=== PATIENT | male | born 2000 | race Caucasian/White ===

== ENCOUNTER 2024-02-07 12:34 | Inpatient (IN) | payer MEDICAID, OTHER ==
[2024-02-07] MEDS ORDERED: MAG HYDROX/AL HYDROX/SIMETH 355 ML BOTTLE PO PRN (20:01)
[2024-02-07] MEDS ORDERED: HALOPERIDOL LACTATE 5 MG/ML 1 ML VIAL IM PRN (20:01)
[2024-02-07] MEDS ORDERED: haloperidoL 5 MG TAB PO PRN (20:01)
[2024-02-07] MEDS ORDERED: LORazepam 1 MG TAB PO PRN (20:01)
[2024-02-07] MEDS ORDERED: LORazepam 2 MG/ML INJ IM PRN (20:01)
[2024-02-07] MEDS: NICOTINE GUM (POLACRILEX) 2 MG GUM BUCCAL PRN (21:31)
[2024-02-08 06:52] VITALS: RESP 16
[2024-02-08] MEDS: NICOTINE 21MG/24HR PATCH TRANSDERM SCH (08:38)
[2024-02-08] MEDS: IBUPROFEN 600 MG TAB PO PRN (10:51)
[2024-02-08 12:36] LABS: Basophils % (A) 0 %; Eosinophils % (A) 0 %; HCT 47.7 % (39.0-53.0); HGB 15.3 gm/dL (13.0-17.5); Lymphocytes # (A) 1.3 k/uL (1.0-4.8); Lymphocytes % (A) 18 %; MCH 29.1 pg (25.0-35.0); MCHC 32.1 g/dL (31.0-37.0); MCV 90.6 fL (80.0-100.0); Mean Platelet Volume 7.4; Monocytes # (A) 0.5 k/uL (0-1.0); Monocytes % (A) 7 %; Neutrophils # (A) 5.5 k/uL (1.3-7.7); Neutrophils % (A) 74 %; Platelet Count 228 k/uL (150-450); RBC 5.27 m/uL (4.30-5.90); RDW 13.1 % (11.5-15.5); WBC 7.4 k/uL (3.8-10.6)
[2024-02-08 12:41] LABS: ALT 46 U/L (4-49); AST 39 U/L (17-59); African American GFR (CKD) >90 (>60 ml/min/1.73 sqM); Albumin 5.4 g/dL (3.5-5.0); Alkaline Phosphatase 49 U/L (38-126); Anion Gap 11 mmol/L; Bilirubin, Delta 0.1 mg/dL (0.0-0.2); Bilirubin,Unconjugated 0.7 mg/dL (0.0-1.1); Blood Urea Nitrogen 11 mg/dL (9-20); Calcium 10.2 mg/dL (8.4-10.2); Carbon Dioxide 29 mmol/L (22-30); Chloride 102 mmol/L (98-107); Glucose 95 mg/dL (74-99); Non-African American GFR(CKD) >90 (>60 ml/min/1.73 sqM); Potassium 4.7 mmol/L (3.5-5.1); Sodium 142 mmol/L (137-145); Total Bilirubin 0.8 mg/dL (0.2-1.3); Total Protein 8.6 g/dL (6.3-8.2)
--- NOTE | 2024-02-08 13:03 | P.HP ---
Psychiatric H&P - . H&P Date: 02/08/24 History & Physical: Allergies Allergy/AdvReac Type Severity Reaction Status Date / Time No Known Allergies Allergy Verified 02/07/24 20:10 Vital Signs Temp 98.4 F 02/08/24 06:52 Pulse 87 02/08/24 06:52 Resp 16 02/08/24 06:52 BP 111/72 02/08/24 06:52 Pulse Ox 98 02/08/24 06:52 FiO2 Intake & Output 02/07/24 02/08/24 02/08/24 18:59 06:59 18:59 Weight 63.6 kg 63.673 kg Laboratory Last Values WBC 7.4 k/uL (3.8-10.6) 02/08/24 11:04 RBC 5.27 m/uL (4.30-5.90) 02/08/24 11:04 Hgb 15.3 gm/dL (13.0-17.5) 02/08/24 11:04 Hct 47.7 % (39.0-53.0) 02/08/24 11:04 MCV 90.6 fL (80.0-100.0) 02/08/24 11:04 MCH 29.1 pg (25.0-35.0) 02/08/24 11:04 MCHC 32.1 g/dL (31.0-37.0) 02/08/24 11:04 RDW 13.1 % (11.5-15.5) 02/08/24 11:04 Plt Count 228 k/uL (150-450) 02/08/24 11:04 MPV 7.4 02/08/24 11:04 Neutrophils % 74 % 02/08/24 11:04 Lymphocytes % 18 % 02/08/24 11:04 Monocytes % 7 % 02/08/24 11:04 Eosinophils % 0 % 02/08/24 11:04 Basophils % 0 % 02/08/24 11:04 Neutrophils # 5.5 k/uL (1.3-7.7) 02/08/24 11:04 Lymphocytes # 1.3 k/uL (1.0-4.8) 02/08/24 11:04 Monocytes # 0.5 k/uL (0-1.0) 02/08/24 11:04 Eosinophils # 0.0 k/uL (0-0.7) 02/08/24 11:04 Basophils # 0.0 k/uL (0-0.2) 02/08/24 11:04 Sodium 142 mmol/L (137-145) 02/08/24 11:04 Potassium 4.7 mmol/L (3.5-5.1) 02/08/24 11:04 Chloride 102 mmol/L (98-107) 02/08/24 11:04 Carbon Dioxide 29 mmol/L (22-30) 02/08/24 11:04 Anion Gap 11 mmol/L 02/08/24 11:04 BUN 11 mg/dL (9-20) 02/08/24 11:04 Creatinine 0.74 mg/dL (0.66-1.25) 02/08/24 11:04 Est GFR (CKD-EPI)AfAm >90 (>60 ml/min/1.73 sqM) 02/08/24 11:04 Est GFR (CKD-EPI)NonAf >90 (>60 ml/min/1.73 sqM) 02/08/24 11:04 Glucose 95 mg/dL (74-99) 02/08/24 11:04 Calcium 10.2 mg/dL (8.4-10.2) 02/08/24 11:04 Total Bilirubin 0.8 mg/dL (0.2-1.3) 02/08/24 11:04 Conjugated Bilirubin 0.0 mg/dL (0.0-0.3) 02/08/24 11:04 Unconjugated Bilirubin 0.7 mg/dL (0.0-1.1) 02/08/24 11:04 Delta Bilirubin 0.1 mg/dL (0.0-0.2) 02/08/24 11:04 AST 39 U/L (17-59) 02/08/24 11:04 ALT 46 U/L (4-49) 02/08/24 11:04 Alkaline Phosphatase 49 U/L (38-126) 02/08/24 11:04 Total Protein 8.6 g/dL (6.3-8.2) H 02/08/24 11:04 Albumin 5.4 g/dL (3.5-5.0) H 02/08/24 11:04 02/08/24 12:52 IDENTIFYING DATA: Patient is a 23-year-old single male, unemployed and living at home with his parents CHIEF COMPLAINT: Suicide attempt via smashing face in the wall HPI: Patient presented to the hospital with suicide attempt. EPS note states, "Patient presented to ER at [facility] after suicide attempt via banging his face into the wall. Patient was medically cleared and CT shows fracture to nasal bone and lacerations requring sutures (5-6") per report. Patient admitted to hitting his head as a suicide attempt. Patient petition completed by CANTEEN OPERATOR stating patient purposefully hit his face into wall. Petition also states that patient has suicide plan to slit his throat. Patient clinical certification completed on 02/06/2024 with diagnosis depression and S/I with facts in support: Patient hit his head into wall several times trying to kill himself, and broke multiple bones in his face." Patient seen and evaluated on the unit and was agreeable with speaking to display card writer in office. He states he has been dealing with isolation, stating he has limited support as he does not want to burden his parents with his problems. He states looking around him and seeing people he know that are his age getting , working jobs and having kids and he feels like he is stuck. He states he did not complete high school, has no job or car and still lives at home with his parents. He states impulsively he smashed his face in a wall several times in order to kill himself however he is happy he did not complete suicide. He states he has had sleep difficulties, low energy, concentration issues, hopelessness but denied any anhedonia as he states he has been actively trying to gain his life back. He reports chronic appetite issues related to constipation and reports significant weight loss.. He talked about a history of severe bullying during his childhood and this causes him to fear men. Patient denies any suicidal or homicidal ideations intent or plan. At this time patient denies any auditory or visual hallucinations. Patient denies any flight of ideas racing thoughts and increased in goal directed behavior. Patient admits to using cigarettes only. PAST PSYCHIATRIC HISTORY: Patient has a history of autism spectrum disorder, depression. Patient denies being on any psychiatric medications. He states he has tried several psychotropic medications including Thioridazine, imipramine, amitriptyline, Xanax, Zoloft, Abilify, Depakote, phenobarbital. Reports issues with nausea with several antidepressant medications and weight gain on Abilify. Patient denies any previous psychiatric hospitalizations. Patient denies any psychiatric outpatient follow-up. He reports 1 previous suicide attempt in 2011 via belt strangulation was not hospitalized PMH: as per ER note ALLERGIES: as per EMR SUBSTANCE USE HISTORY: He reports smoking 6 cigarettes/day but denied any alcohol or illicit drug use FAMILY PSYCHIATRIC/SUBSTANCE USE HISTORY: He reports his grandma suffer from bipolar disorder and that dad's sides of the family abused alcohol however his father does not SOCIAL HISTORY: Patient was born and raised in [facility] however his family moved to [place] for some time before moving back. He completed schooling up to 10th grade, stating he had IEP plans. He is single, unemployed and has no children. He lives at home with his parents. MENTAL STATUS EXAM: General Appearance: Patient appears to be stated age is alert, directable, and attempts to cooperate. Patient appears to have fair hygiene and grooming. Behavior: Patient is seated without any agitated behavior. Speech: Patient's speech is fluent and nonpressured. Mood/Affect: Patient reports their mood is depressed, affect is congruent and constricted. Suicidality/Homicidality: Patient denies having any homicidal ideation intent or plan. Denies any suicidal ideations intent or plan Perceptions: Patient denies any visual hallucinations and denies any auditory hallucinations Though content/process: There is no evidence of any delusional thought content and thought process is linear and logical. Memory and concentration: AOX3, grossly intact for the purposes of this session. Can spell "WORLD" backwards Judgment and insight: Poor STRENGTHS/WEAKNESSES: strength is that patient is resilient, have family support. Weakness is that patient has poor judgment and is impulsive INTELLECT: Average-below average IMPRESSIONS: Suicide attempt Major depressive disorder, recurrent, severe without psychotic features Generalized anxiety disorder Nicotine dependence Autism spectrum disorder PLAN: -Patient is admitted under voluntary status to MHU for stabilization of psychiatric symptoms and safety. Patient has signed adult voluntary form and medication consent and is placed in patient's chart. -Medications : Start Remeron 7.5 mg at bedtime for depression/anxiety -Ativan and Haldol PRN for agitation/aggression -Patient was informed of the risks, benefits and side effects of the medication and patient verbally consented to taking the medications. Patient signed med consent form and was placed in chart. -Internal Medicine consult to perform medical evaluation and physical. -NRT -nicotine patch -SW on board for discharge planning. Encourage patient to participate in groups to work on coping skills. Anticipate discharge home with family early/mid next week
[2024-02-08] MEDS: MAGNESIUM HYDROXIDE 2,400 MG/30 ML CUP PO PRN (15:55)
[2024-02-08] MEDS: polyethylene glycoL 3350 17 GM POWD.PACK PO SCH (17:22)
--- NOTE | 2024-02-08 18:25 | P.HPIM ---
History of Present Illness H&P Date: 02/08/24 23 year old M with PMH of GERD, Constipation presents to [facility] for mental health concerns. He has been admitted to the mental health unit for further management of symptoms. [facility] consulted for medical management of this patient. Reports a history of GERD on Omeprazole. Reports a history of constipation on Miralax. Smokes 6 cigs daily. No EtOH or illicits. BP 132/70, HR 99, T 98.6, RR 18, 99% on RA. CBC unremarkable. CMP alb 5.4, total protein 8.6. TSH 2.67. A1c 5.1. General: non toxic, no distress, appears at stated age Derm: warm, dry Head: atraumatic, normocephalic, symmetric Eyes: EOMI, no lid lag, anicteric sclera Mouth: no lip lesion, mucus membranes moist Cardiovascular: S1S2 reg, no murmur Lungs: CTA bilateral, no rhonchi, no rales , no accessory muscle use Ext: no gross muscle atrophy, no edema, no contractures Neuro: no focal neuro deficits Psych: Alert, oriented, appropriate affect Based on my assessment of this patient, this patient meets a high complexity level of care. GERD: Protonix 40 mg PO QD. Constipation: Miralax 17g PO QD. Nicotine dependence: Nicotine patch 21 mg/24H. I have reviewed the following sourcing consultant notes: Psyc note. I have reviewed the results of the following tests: CBC, CMP, A1c, TSH. I have ordered the following tests: I have discussed the care of this patient with the following independent historian: I have independently interpreted the following test below: I have discussed the management of this patient with the following physician: Past Medical History Past Medical History: GERD/Reflux History of Any Multi-Drug Resistant Organisms: None Reported Past Surgical History: No Surgical Hx Reported Past Anesthesia/Blood Transfusion Reactions: No Reported Reaction Past Psychological History: Depression Smoking Status: Current every day smoker Past Alcohol Use History: None Reported Past Drug Use History: None Reported - Past Family History Father Family Medical History: No Reported History Mother Family Medical History: No Reported History Medications and Allergies Home Medications Medication Instructions Recorded Confirmed Type No Known Home Medications 02/07/24 02/07/24 History Allergies Allergy/AdvReac Type Severity Reaction Status Date / Time No Known Allergies Allergy Verified 02/07/24 20:10 Physical Exam Vitals: Vital Signs Temp Pulse Resp BP Pulse Ox 02/08/24 06:52 98.4 F 87 16 111/72 98 02/07/24 20:31 98.6 F 99 18 132/70 99 Results CBC & Chem 7: 02/08/24 11:04 02/08/24 11:04 Labs: Abnormal Lab Results - Last 24 Hours (Table) 02/08/24 Range/Units 11:04 Total Protein 8.6 H (6.3-8.2) g/dL Albumin 5.4 H (3.5-5.0) g/dL Thrombosis Risk Factor Assmnt - Choose All That Apply Any of the Below Risk Factors Present?: No Other Risk Factors: No Thrombosis Risk Factor Assessment Level: Very Low Risk
[2024-02-08 18:59] LABS: Appearance,Urine Clear (Clear); Bilirubin,Urine Negative (Negative); Blood,Urine Negative (Negative); Color,Urine Yellow; Glucose,Urine (UA) Negative (Negative); Ketones,Urine Negative (Negative); Leukocyte Esterase,Urine Negative (Negative); Mucus,Urine Few /hpf; Nitrite,Urine Negative (Negative); Protein,Urine 1+ (Negative); RBC,Urine <1 /hpf (0-5); Squamous Epithelial Cell,Urine <1 /hpf (0-4); Urobilinogen,Urine <2.0 mg/dL (<2.0); WBC,Urine 2 /hpf (0-5)
[2024-02-08] MEDS: MIRTAZAPINE 15 MG TAB PO SCH (20:11)
[2024-02-08 20:43] LABS: LDL Cholesterol,Calculated 71.1 mg/dL (0.0-131.0)
[2024-02-09 06:47] VITALS: TEMP 97.8
[2024-02-09] MEDS: PANTOPRAZOLE 40 MG TABLET PO SCH (08:43)
--- NOTE | 2024-02-09 13:32 | P.PN ---
Progress Note - Text Progress Note Date: 02/09/24 Interval history: Patient was seen after visitation and was directable and agreeable to speak with check writer. He reports feeling "pretty good." He denies experiencing suicidal ideation and feels "blunt happiness" which is an improvement in his mood as compared to admission. He recognized that he doesn't necessarily appear happy but notes he does feel this inside. We explored the factors that contributed to his suicide attempt, and he identifed feeling lonely. He doesn't want to burden his parents by seeking time/connection with them given the effor they put into providing for the family (Dad) and maintaining the home (Mom). He has goals he'd like to accomplish and was future-oriented; specifically, he wants to start driving, complete his GED, get a job, and get an apartment. He feels he knows the next steps to take in accomplishing these goals but identified loneliness as a barrier. He's sleeping well. He's experiencing some constipation; we discussed adding something else to his regimen to provide relief. At this time patient denies any suicidal or homicidal ideations intent or plan. Denies any auditory or visual hallucinations. Patient denies any side effects from the medications and has been compliant with meds. Mental status exam: General Appearance: Patient appears to be stated age is alert, directable, and cooperative. Stitches and bruising on bridge of nose with some right-sided facial swelling. Behavior: No agitated behavior. Patient is calm and directable Speech: Patient's speech is fluent and non-pressured. Mood/Affect: Mood is "blunted happiness", affect is congruent and constricted. Suicidality/Homicidality: Patient denies having any suicidal or homicidal ideation intent or plan. Perceptions: Patient denies any auditory or visual hallucinations. Though content/process: There is no evidence of any delusional thought content and thought process is linear and goal-directed. Memory and concentration: AOX3, grossly intact for the purposes of this session Judgment and insight: improving mildly Assessment/Plan: Continue with current diagnoses: Suicide attempt, Major depressive disorder- severe without psychotic features, generalized anxiety disorder, autism spectrum disorder, nicotine dependence Patient continues to meet criteria for inpatient psychiatric admission for symptom stabilization and safety. Patient will be maintained on current psychotropic medication regimen: Remeron 7.5 mg at bedtime Monitor for medication compliance and for any psychotropic medication side effects. Will continue to monitor ongoing response to treatment. Encouraged participation in milieu.
[2024-02-09] MEDS: SENNOSIDES 8.6 MG TAB PO SCH (15:48)
[2024-02-09] MEDS: diphenhydrAMINE 25 MG CAP PO STA (22:38)
--- NOTE | 2024-02-10 10:58 | P.PN ---
Progress Note - Text Interval history: Patient was directable and agreeable to speak with real estate underwriter in the office. He reports "doing pretty good" today. He notices improvement in his mood compared to admission. He experienced significant loneliness and feeling he wasn't living up to his potential due to not having completed his education or having a job/friends. This contributed to the suicidal ideation that led to his attempt. He is feeling more hopeful about being able to take the steps to move towards building his social life and pursuing employment. He has been talking to his parents; the conversations are going well from his perspective. He had a difficult time sleeping last night; he forgot to remove his nicotine patch and had disturbing dreams. He reports stable appetite. Ongoing issues with chronic constipation, currently exacerbated because any forceful attempts at having a bowel movement increase the pressure in his nose which results in increased pain near his stitches. We discussed a plan to increase his bowel regimen to promote soft stools and avoid straining. At this time patient denies any suicidal or homicidal ideations intent or plan. Denies any auditory or visual hallucinations. Patient denies any side effects from the medications and has been compliant with meds. Mental status exam: General Appearance: Patient appears to be stated age is alert and cooperative. Stitches and bruising on bridge of nose with mild improvement in right-sided facial swelling. Behavior: No agitated behavior. Patient is calm and directable. Speech: Patient's speech is fluent and non-pressured. Mood/Affect: Mood is "pretty good", affect is congruent and constricted. Suicidality/Homicidality: Patient denies having any suicidal or homicidal ideation intent or plan. Perceptions: Patient denies any auditory or visual hallucinations. Though content/process: There is no evidence of any delusional thought content and thought process is linear and goal-directed. Memory and concentration: AOX3, grossly intact for the purposes of this session Judgment and insight: continues to improve Assessment/Plan: Continue with current diagnoses: Suicide attempt, Major depressive disorder- severe without psychotic features, generalized anxiety disorder, autism spectrum disorder, nicotine dependence Patient continues to meet criteria for inpatient psychiatric admission for symptom stabilization and safety. Patient will be maintained on current psychotropic medication regimen: Remeron 7.5 mg at bedtime; will increase to 15 mg tonight For chronic constipation presently exacerbated will increase Miralax to 17 GM BID (patient was on this in the past and found BID dosing helpful); also added Docusate 100 mg BID (today) and Senna once daily (yesterday) Monitor for medication compliance and for any psychotropic medication side effects. Will continue to monitor ongoing response to treatment. Encouraged participation in milieu.
[2024-02-10] MEDS: polyethylene glycoL 3350 17 GM POWD.PACK PO SCH (15:33)
[2024-02-10] MEDS: MIRTAZAPINE 15 MG TAB PO SCH (20:10)
[2024-02-10] MEDS: DOCUSATE 100 MG CAP PO SCH (20:11)
[2024-02-11] MEDS: ACETAMINOPHEN TAB 325 MG TAB PO PRN (08:29)
--- NOTE | 2024-02-11 12:18 | P.PN ---
Progress Note - Text Progress Note Date: 02/11/24 Interval History: Patient was seen wandering the hallways and was directable and agreeable to karlos villar with remote mortgage underwriter in the office. He reports feeling well today. He reports improvement in terms of his mood and states his nose is doing better and is less painful. He reports difficulties with sleep at night due to the environment and one of his peers walking throughout the night. He has spoken to several family members since he has been here and things are well at home. He states his father will be able to pick him up once discharged. He finally had a bowel movement yesterday and reports having 1 today as well. He reports no anxiety. At this time patient denies any suicidal or homicidal ideations, intent or plan. Patient denies any auditory, visual hallucinations and denies any paranoia or delusions. Patient denies any side effects from the medications and has been compliant with meds. Mental Status Exam: General Appearance: Patient appears to be stated age is alert, directable, and cooperative. Behavior: Patient is calmly seated without any agitated behavior. Speech: Patient's speech is fluent and nonpressured. Mood/Affect: Mood is improving mildly, affect is congruent and blunted. Suicidality/Homicidality: Patient denies having any suicidal or homicidal ideation intent or plan. Perceptions: Patient denies any visual hallucinations and denies any auditory hallucinations Though content/process: There is no evidence of any delusional thought content and thought process is linear and goal-directed. Memory and concentration: AOX3, grossly intact for the purposes of this session Judgment and insight: Improving mildly Assessment Suicide attempt Major depressive disorder, recurrent, severe without psychotic features Generalized anxiety disorder Nicotine dependence Autism spectrum disorder Plan: -Patient continues to meet criteria for inpatient psychiatric admission for symptom stabilization and safety. Patient has signed adult voluntary form and medication consent and was placed in patient's chart. -Medications: Continue Remeron 15 mg at bedtime for depression/anxiety -When necessary Ativan and Haldol for agitation/aggression. -Labs: Reviewed -NRT -nicotine patch -SW on board for discharge planning. Encouraged the patient to participate in milieu. Anticipate discharge home with family tomorrow, will confirm with father there are no firearms in the home.
[2024-02-12 06:53] VITALS: BP 105/77; PULSE 88
--- NOTE | 2024-02-12 10:52 | P.DS ---
Providers Date of admission: 02/07/24 19:58 Expected date of discharge: 02/12/24 Attending physician: Shayla Gtz MD Consults: 02/07/24 20:01 Consult Physician Routine Consulting Provider: Irma Rodrigues Consult Reason/Comments: History and Physical Do you want consulting provider notified?: Yes Primary care physician: Stated None - Discharge Diagnosis(es) (1) Suicide attempt Current Visit: Yes Status: Acute Priority: High (2) Major depressive disorder, recurrent episode, severe Current Visit: Yes Status: Acute Priority: High (3) Generalized anxiety disorder Current Visit: Yes Status: Acute Priority: Medium (4) Nicotine dependence Current Visit: Yes Status: Acute Priority: Low (5) Autism spectrum disorder Current Visit: Yes Status: Chronic Priority: Low Hospital Course: Admission HPI: Admission note was completed by residential mortgage underwriter "Patient presented to the hospital with suicide attempt. EPS note states, "Patient presented to ER at [facility] after suicide attempt via banging his face into the wall. Patient was medically cleared and CT shows fracture to nasal bone and lacerations requring sutures (5-6") per report. Patient admitted to hitting his head as a suicide attempt. Patient petition completed by RESEARCH SCHOLAR stating patient purposefully hit his face into wall. Petition also states that patient has suicide plan to slit his throat. Patient clinical certification completed on 02/06/2024 with diagnosis depression and S/I with facts in support: Patient hit his head into wall several times trying to kill himself, and broke multiple bones in his face." Patient seen and evaluated on the unit and was agreeable with speaking to residential mortgage underwriter in office. He states he has been dealing with isolation, stating he has limited support as he does not want to burden his parents with his problems. He states looking around him and seeing people he know that are his age getting , working jobs and having kids and he feels like he is stuck. He states he did not complete high school, has no job or car and still lives at home with his parents. He states impulsively he smashed his face in a wall several times in order to kill himself however he is happy he did not complete suicide. He states he has had sleep difficulties, low energy, concentration issues, hopelessness but denied any anhedonia as he states he has been actively trying to gain his life back. He reports chronic appetite issues related to constipation and reports significant weight loss.. He talked about a history of severe bullying during his childhood and this causes him to fear men. Patient denies any suicidal or homicidal ideations intent or plan. At this time patient denies any auditory or visual hallucinations. Patient denies any flight of ideas racing thoughts and increased in goal directed behavior. Patient admits to using cigarettes only." Hospital course: Upon admission to the unit patient was directable and agreeable to commence treatment and signed adult voluntary form.. Patient got along well with other patients on the unit and followed unit protocol. Patient was compliant with the medications and denied any side effects throughout hospital course. Patient was started on Remeron this was increased to 15 mg at bedtime for depression/anxiety. Patient notably had difficulties with both sleep and appetite and both improved throughout his stay. Patient spoke of his stressors and engaged in therapy both group and individual. Patient was also seen by medical team for history and physical exam. He was started on several stool softeners given his constipation including Colace, senna and MiraLAX. Throughout the course of the hospitalization patient gradually improved with regards to mood, anxiety, sleep and became more future oriented with improved insight and judgment. On the day of discharge patient denied any suicidal or homicidal ideations intent or plan denied any auditory or visual hallucinations. The patient denied any access to guns or weapons. Patient denied any paranoia and did not endorse any delusions. Patient does not have a significant history of substance abuse and was counseled on abstaining from all substances including alcohol and marijuana. Patient was also counseled on the medications and need for regular compliance and was encouraged to follow-up with their outpatient appointment for mental health and also for primary care. Prior to discharge a family meeting will be arranged by social group worker to answer any questions and ensure safety upon discharge incuding making sure that guns/weapons are either removed from the home or locked away. Patient to be discharged home with parents with [facility] follow-up in [facility]. Mental status exam: General Appearance: Patient appears to be stated age is alert, pleasant, and cooperative. Patient is in no acute distress and has good hygiene and grooming Behavior: Patient is calmly seated without any agitated behavior. Speech: Patient's speech is fluent and nonpressured. Mood/Affect: Patient reports their mood is "better", affect is congruent and euthymic. Suicidality/Homicidality: Patient denies having any suicidal or homicidal ideation intent or plan. Perceptions: Patient denies any auditory or visual hallucinations. Though content/process: There is no evidence of any delusional thought content and thought process is linear and goal-directed. More future oriented Memory and concentration: AOX3, grossly intact for the purposes of this session. Can spell "WORLD" backwards correctly. Judgment and insight: improved with guarded prognosis Impression: Suicide attempt Major depressive disorder, recurrent, severe without psychotic features Generalized anxiety disorder Nicotine dependence Autism spectrum disorder Plan: -Continue with discharge today as patient has improved and stabilized psychiatrically and is not currently an imminent threat to themself and/or others. -Continue medications: Remeron 15 mg at bedtime -Patient was counseled on the need for medication compliance and appropriate follow-up at mental health and also primary care for medical issues. Patient verbalized understanding and agreed. -Social work to help coordinate patients discharge today arrange for and conduct family meeting to ensure safety upon discharge and answer any questions/concerns. also to ensure safe home environment that guns/weapons are either removed from the home or locked away. Social work also to arrange for patients follow up appointments with [facility] for psychiatric care along with follow up with primary care provider. -Patient counseled on abstaining from recreational drugs and marijuana and alcohol. Was informed/educated on the adverse effects on their physical and mental health. Patient verbally agreed and understood. -Patient was instructed to return to the hospital or seek immediate medical care if their psychiatric or medical symptoms do worsen or reoccur. Allergies Allergy/AdvReac Type Severity Reaction Status Date / Time No Known Allergies Allergy Verified 02/07/24 20:10 Abnormal Labs 02/08/24 02/08/24 08:54 11:04 Total Protein 8.6 H Albumin 5.4 H HDL Cholesterol 82.20 H Urine Protein 1+ H Urine Mucus Few H Vital Signs Temp 97.8 F 02/09/24 06:46 Pulse 88 02/12/24 06:52 Resp 16 02/08/24 06:52 BP 105/77 02/12/24 06:52 Pulse Ox 100 02/09/24 06:46 FiO2 Patient Condition at Discharge: Stable Plan - Discharge Summary Discharge Rx Participant: Yes New Discharge Prescriptions: New Nicotine 21Mg/24Hr Patch [Habitrol] 1 patch TRANSDERM DAILY 30 Days #30 patch polyethylene glycoL 3350 [Miralax] 17 gm PO BID@0900,1600 packet Docusate [Colace] 100 mg PO BID 30 Days #60 cap Pantoprazole [Protonix] 40 mg PO AC-BRKFST 30 Days #30 tab Mirtazapine [Remeron] 15 mg PO HS 30 Days #30 tab Sennosides [Senokot] 8.6 mg PO DAILY 30 Days #30 tab Discharge Medication List Docusate [Colace] 100 mg PO BID 30 Days #60 cap 02/12/24 [Rx] Mirtazapine [Remeron] 15 mg PO HS 30 Days #30 tab 02/12/24 [Rx] Nicotine 21Mg/24Hr Patch [Habitrol] 1 patch TRANSDERM DAILY 30 Days #30 patch 02/12/24 [Rx] Pantoprazole [Protonix] 40 mg PO AC-BRKFST 30 Days #30 tab 02/12/24 [Rx] Sennosides [Senokot] 8.6 mg PO DAILY 30 Days #30 tab 02/12/24 [Rx] polyethylene glycoL 3350 [Miralax] 17 gm PO BID@0900,1600 packet 02/12/24 [Rx] Follow up Appointment(s)/Referral(s): Shaka Wen [facility] [Other] - 02/13/24 10:15 am [facility] [Other] - 1 Week Patient Instructions/Handouts: How to Stop Smoking (DC), Depression (DC), Generalized Anxiety Disorder (ED) Activity/Diet/Wound Care/Special Instructions: [facility] Discharge Info Avoid the use of street drugs and alcohol. Take all medications as prescribed. When you are in need of refills on your medications, please contact your outpatient medical provider and/or outpatient psychiatrist. Please go to your scheduled outpatient appointments for aftercare treatment. If symptoms return or become worse, call the crisis line at or and/or visit the nearest emergency room for assistance. National Suicide and Crisis Lifeline - call or text 988 Discharge Disposition: HOME SELF-CARE
--- NOTE | 2024-03-06 17:14 | CDI ---
Documentation Clarification Form Date: 03/06/2024 05:01:42 PM From: Zoraida Cheek Phone: Admit Date: 02/07/2024 07:58:00 PM Patient Name: Anthony Whitney Visit Number: [id number] Discharge Date: 02/12/2024 11:23:00 AM ATTENTION: The Clinical Documentation Specialists (CDI) and [facility] Coding Staff appreciate your assistance in clarifying documentation. Please respond to the clarification below the line at the bottom and electronically sign. The CDI & [facility] Coding staff will review the response and follow-up if needed. Please note: Queries are made part of the Legal Health Record. If you have any questions, please contact the author of this message via ITS. Doctor/Provider: Shayla Gtz Patient has a documented BMI of 19.9. Additional clarification is requested. History/Risk Factors: SA via cutting, MDD recurrent, severe without psychotic features, KATELYNN, Autism spectrum disorder, smoker Clinical Indicators: Weight 63.6 kg Height: 6 Calculated BMI is: 19.9 He reports chronic appetite issues related to constipation and reports significant weight loss. Treatments: monitored Please clarify, is there is an additional diagnosis that is clinically appropriate for this patient? [ ] Abnormal weight loss, NOS [ ] Cachexia [ ] Underweight [ ] Malnutrition, (further specify severity and type) [ ] No additional diagnosis/not clinically significant [ ] Other, please specify [ ] Unable to determine (Template Last Revised: April 2020) MTDD
--- NOTE | 2024-03-10 11:04 | CDI ---
Documentation Clarification Form Date: 03/10/2024 11:02:50 AM From: Zoraida Cheek Phone: Admit Date: 02/07/2024 07:58:00 PM Patient Name: Anthony Whitney Visit Number: [id number] Discharge Date: 02/12/2024 11:23:00 AM ATTENTION: The Clinical Documentation Specialists (CDI) and [facility] Coding Staff appreciate your assistance in clarifying documentation. Please respond to the clarification below the line at the bottom and electronically sign. The CDI & [facility] Coding staff will review the response and follow-up if needed. Please note: Queries are made part of the Legal Health Record. If you have any questions, please contact the author of this message via ITS. Doctor/Provider: Shayla Gtz Thank you for acknowledging the previous query; however, it lacked a response. Patient has a documentedBMI of 19.9.Additional clarification is requested. History/Risk Factors: SA via cutting,MDD recurrent, severe without psychotic features,KATELYNN,Autism spectrum disorder,smoker Clinical Indicators: Weight 63.6 kg Height: 6 CalculatedBMIis: 19.9 He reports chronic appetite issues related toconstipationand reports significantweight loss. Treatments: monitored Please clarify, is there is an additional diagnosis that is clinically appropriate for this patient? [ ]Abnormal weight loss, NOS [ ]Cachexia [ ]Underweight [ ]Malnutrition, (further specify severity and type) [ ] No additional diagnosis/not clinically significant - BMI is within normal limits as it is >18.5 [ ] Other, please specify [ ] Unable to determine (Template LastRevised: April 2020) MTDD
== END 2024-02-12 11:23 | disposition home or self-care (01) | DRG 751 ==
LOC: 3MHU 19:58
PROVIDERS: ADMIT Psychiatry & Neurology Psychiatry; ATTEND Psychiatry & Neurology Psychiatry
DX: F33.2 Major depressive disorder, recurrent severe without psychotic features (principal); S02.92XA Unspecified fracture of facial bones, initial encounter for closed fracture; R45.851 Suicidal ideations; X79.XXXA Intentional self-harm by blunt object, initial encounter; S01.21XA Laceration without foreign body of nose, initial encounter; K59.09 Other constipation; F17.210 Nicotine dependence, cigarettes, uncomplicated; F84.0 Autistic disorder; F41.1 Generalized anxiety disorder; K21.9 Gastro-esophageal reflux disease without esophagitis; R45.89 Other symptoms and signs involving emotional state; Z56.0 Unemployment, unspecified; Z62.819 Personal history of unspecified abuse in childhood; Z55.5 Less than a high school diploma; Z91.51 Personal history of suicidal behavior; Z81.8 Family history of other mental and behavioral disorders; Z81.1 Family history of alcohol abuse and dependence; Z79.899 Other long term (current) drug therapy; Z68.1 Body mass index [BMI] 19.9 or less, adult
CPT/HCPCS: 80053; 80061; 81001; 82248; 83036; 84443; 85025